=== PATIENT | female | born 1965 | race Two or more races ===

== ENCOUNTER 2020-06-02 17:04 | Inpatient (IN) | payer BC, OTHER ==
[~2020-06-02] VITALS: Ht 154.9 cm; Wt 111.1 kg
[2020-06-02] VITALS: BP 117/70
[2020-06-02] MEDS ORDERED: methylPREDNISolone SOD SUCC 125 MG/2 ML VL IV ONE (17:15)
[2020-06-02 18:39] LABS: Basophils # (auto) 0 10 ^3/uL (0-0.2); Basophils % (auto) 0.2 % (0.0-2.0); Eosinophils # (auto) 0 10 ^3/uL (0-0.8); Eosinophils % (auto) 0.1 % (0.0-7.0); Lymphocytes # (auto) 0.7 10 ^3/uL (0.4-5.4); Lymphocytes % (auto) 9.2 % (10.0-50.0); Mean Corpuscular Hemoglobin 29.9 pg (28.0-32.0); Mean Corpuscular Volume 87.8 fL (80.0-100.0); Monocytes # (auto) 0.5 10 ^3/uL (0-1.3); Monocytes % (auto) 6.1 % (0.0-12.0); Neutrophils # (auto) 6.5 10 ^3/uL (1.6-8.6); Neutrophils % (auto) 84.4 % (37.0-80.0); Nucleated Red Blood Cells % 0.1 %; Platelet Count (auto) 413 10^3/uL (140-450); Red Blood Cells 4.67 10^6/uL (4.0-5.20); Red Cell Distribution Width 13.5 % (11.8-14.3); Urine Bacteria FEW /hpf (None Seen); Urine Blood TRACE /uL (Negative); Urine Mucus FEW (None Seen); Urine Specific Gravity 1.022 (1.001-1.035); Urine WBC 1 /hpf (0 - 5); White Blood Cell 7.7 10^3/uL (4.4-10.8)
[2020-06-02] MEDS ORDERED: ASCORBIC ACID 500 MG TAB PO ONE (18:45)
[2020-06-02] MEDS ORDERED: CHOLECALCIFEROL (VITD3) 2,000 UNIT CAP/TAB PO ONE (18:45)
[2020-06-02] MEDS ORDERED: AZITHROMYCIN 500MG/ 250ML 250 ML IV ONE (18:45)
[2020-06-02] MEDS ORDERED: ZINC SULFATE 220mg CAP or TAB PO ONE (18:45)
[2020-06-02] MEDS ORDERED: REMDESIVIR PER PHARMACY 0 ML IV SCH (19:00)
[2020-06-02 19:07] LABS: Albumin 2.9 g/dL (3.4-5.0); Anion Gap 11 (5-15); Calcium 8.7 mg/dL (8.5-10.1); Carbon Dioxide 25 mmol/L (21-32); Chloride 100 mmol/L (98-107); Glucose 191 mg/dL (74-106); Magnesium 2.2 mg/dL (1.6-2.6); Potassium 3.4 mmol/L (3.5-5.1); Sodium 136 mmol/L (136-145)
[2020-06-02 19:16] LABS: Alkaline Phosphatase 117 U/L (45-117); Aspartate Aminotransferase 31 U/L (15-37); Bilirubin, Total 0.5 mg/dL (0.2-1.0); CRP High Sensitivity 3.48 mg/dL (< 0.3); GFR African American 120 mL/min; GFR Non-African American 99 mL/min; Total Protein 7.7 g/dL (6.4-8.2)
[2020-06-02 19:19] LABS: BUN/Creatinine Ratio 18.2; Blood Urea Nitrogen 12 mg/dL (7-18)
[2020-06-02 19:22] LABS: Lactic Acid w/Reflex 2.8 mmol/L (0.4-2.0)
[2020-06-02 19:22] LABS: Alanine Aminotransferase 41 U/L (13-56)
[2020-06-02] MEDS ORDERED: NITROGLYCERIN 0.4 MG SL TAB SL PRN (20:15)
[2020-06-02] MEDS ORDERED: MORPHINE SULF INJ 2 MG/ML SYRINGE 1ML IV PRN (20:15)
[2020-06-02] MEDS ORDERED: methylPREDNISolone SOD SUCC 125 MG/2 ML VL IV SCH (22:00)
[2020-06-02] MEDS: ALBUTEROL SULF HFA 90MCG INH 200DOSE IN SCH (22:00)
[2020-06-02 22:30] VITALS: BP 117/70
[2020-06-02 23:47] VITALS: BP 117/70
[2020-06-03] MEDS: SOD CHL 0.45% 1,000 ML IV SCH ×3 (01:48→19:45)
[2020-06-03] MEDS: ALBUTEROL SULF HFA 90MCG INH 200DOSE IN SCH ×3 (06:00→20:10)
[2020-06-03 07:31] LABS: Potassium 3.7 mmol/L (3.5-5.1)
[2020-06-03 07:35] LABS: Basophils # (auto) 0 10 ^3/uL (0-0.2); Basophils % (auto) 0.1 % (0.0-2.0); Eosinophils # (auto) 0 10 ^3/uL (0-0.8); Hematocrit 38.5 % (36.0-46.0); Hemoglobin 13.2 g/dL (12.2-16.2); Lymphocytes # (auto) 0.9 10 ^3/uL (0.4-5.4); Lymphocytes % (auto) 14.8 % (10.0-50.0); Mean Corpuscular Hemoglobin 29.9 pg (28.0-32.0); Mean Corpuscular Hgb Conc. 34.3 g/dL (32.0-36.0); Monocytes # (auto) 0.6 10 ^3/uL (0-1.3); Neutrophils # (auto) 4.4 10 ^3/uL (1.6-8.6); Neutrophils % (auto) 75.1 % (37.0-80.0); Nucleated Red Blood Cells % 0.3 %; Platelet Count (auto) 423 10^3/uL (140-450); Red Blood Cells 4.43 10^6/uL (4.0-5.20); Red Cell Distribution Width 13.1 % (11.8-14.3); White Blood Cell 5.9 10^3/uL (4.4-10.8)
[2020-06-03 07:45] LABS: Albumin 2.6 g/dL (3.4-5.0); BUN/Creatinine Ratio 25.5; Bilirubin, Total 0.6 mg/dL (0.2-1.0); Total Protein 6.4 g/dL (6.4-8.2)
[2020-06-03 08:00] VITALS: BP 114/70
[2020-06-03] MEDS ORDERED: REMDESIVIR PER PHARMACY 0 ML IV SCH (08:15)
[2020-06-03 09:00] VITALS: BP 114/70
[2020-06-03] MEDS: levoFLOXacin 500MG 100 ML IV SCH (09:54)
[2020-06-03] MEDS: DexAMETHasone SOD PHOS 10MG/1ML VIAL INJ IV SCH (09:54)
[2020-06-03] MEDS: ZINC SULFATE 220mg CAP or TAB PO SCH (09:54)
[2020-06-03] MEDS: ASCORBIC ACID 500 MG TAB PO SCH ×2 (09:54→21:40)
[2020-06-03] MEDS: CHOLECALCIFEROL (VITD3) 1,000UNIT=25mCg TAB PO SCH (09:54)
[2020-06-03] MEDS ORDERED: IOHEXOL 350 MG/ML 100ML IJ ONE (10:11)
[2020-06-03] MEDS ORDERED: REMDESIVIR 200 MG in NS 210ml LOADING DOSE ADULT IV ONE (12:00)
[2020-06-03] MEDS: ENOXAPARIN SOD 40 MG/0.4 ML SYRINGE SC SCH (12:01)
[2020-06-03 13:00] VITALS: BP 128/74
[2020-06-03 16:48] VITALS: BP 117/66
[2020-06-03 22:00] VITALS: BP 120/57
[2020-06-04 05:00] VITALS: BP 100/50
[2020-06-04 07:20] LABS: Basophils # (auto) 0 10 ^3/uL (0-0.2); Basophils % (auto) 0.2 % (0.0-2.0); Eosinophils # (auto) 0 10 ^3/uL (0-0.8); Eosinophils % (auto) 0.1 % (0.0-7.0); Hemoglobin 13.1 g/dL (12.2-16.2); Lymphocytes # (auto) 1.6 10 ^3/uL (0.4-5.4); Lymphocytes % (auto) 23.8 % (10.0-50.0); Mean Corpuscular Hemoglobin 30.4 pg (28.0-32.0); Mean Corpuscular Hgb Conc. 34.4 g/dL (32.0-36.0); Mean Corpuscular Volume 88.3 fL (80.0-100.0); Monocytes # (auto) 0.8 10 ^3/uL (0-1.3); Monocytes % (auto) 12.5 % (0.0-12.0); Neutrophils # (auto) 4.2 10 ^3/uL (1.6-8.6); Neutrophils % (auto) 63.4 % (37.0-80.0); Nucleated Red Blood Cells % 0.1 %; Platelet Count (auto) 391 10^3/uL (140-450); Red Cell Distribution Width 13.4 % (11.8-14.3); White Blood Cell 6.6 10^3/uL (4.4-10.8)
[2020-06-04] MEDS: ALBUTEROL SULF HFA 90MCG INH 200DOSE IN SCH ×3 (07:22→19:37)
[2020-06-04 07:37] LABS: Albumin 2.6 g/dL (3.4-5.0); Calcium 8.1 mg/dL (8.5-10.1)
[2020-06-04 07:43] LABS: BUN/Creatinine Ratio 26.9; Bilirubin, Total 0.6 mg/dL (0.2-1.0); Total Protein 6.5 g/dL (6.4-8.2)
[2020-06-04 08:51] VITALS: BP 114/61
[2020-06-04] MEDS: ZINC SULFATE 220mg CAP or TAB PO SCH (09:45)
[2020-06-04] MEDS: ASCORBIC ACID 500 MG TAB PO SCH ×2 (09:45→21:14)
[2020-06-04] MEDS: CHOLECALCIFEROL (VITD3) 1,000UNIT=25mCg TAB PO SCH (09:46)
[2020-06-04] MEDS: ENOXAPARIN SOD 40 MG/0.4 ML SYRINGE SC SCH (09:46)
[2020-06-04] MEDS: levoFLOXacin 500MG 100 ML IV SCH (09:47)
[2020-06-04] MEDS: DexAMETHasone SOD PHOS 10MG/1ML VIAL INJ IV SCH (09:47)
[2020-06-04] MEDS: SOD CHL 0.45% 1,000 ML IV SCH ×2 (11:28→17:54)
[2020-06-04 13:00] VITALS: BP 127/81
[2020-06-04] MEDS: REMDESIVIR 100mg 100 MG in SODIUM CHL 0.9% 230 ML IV SCH (16:26)
[2020-06-04 17:00] VITALS: BP 116/71
[2020-06-05] MEDS: SOD CHL 0.45% 1,000 ML IV SCH ×2 (03:15→13:15)
[2020-06-05 05:07] VITALS: BP 107/55
[2020-06-05] MEDS: ALBUTEROL SULF HFA 90MCG INH 200DOSE IN SCH ×2 (06:20→14:08)
[2020-06-05 06:42] LABS: Hematocrit 40.2 % (36.0-46.0); Hemoglobin 13.5 g/dL (12.2-16.2); Mean Corpuscular Hemoglobin 30.2 pg (28.0-32.0); Mean Corpuscular Hgb Conc. 33.5 g/dL (32.0-36.0); Mean Corpuscular Volume 90.1 fL (80.0-100.0); Platelet Count (auto) 303 10^3/uL (140-450); Red Blood Cells 4.46 10^6/uL (4.0-5.20); Red Cell Distribution Width 13.3 % (11.8-14.3); White Blood Cell 5.9 10^3/uL (4.4-10.8)
[2020-06-05 06:57] LABS: Basophils % (manual) 0 (0.0-2.0); Blast Cells 0; Eosinophils % (manual) 0 (0-7); Myelocytes % 0; Promyelocytes % 0; Reactive Lymphocytes 0
[2020-06-05 06:58] LABS: Albumin 2.8 g/dL (3.4-5.0); Calcium 7.9 mg/dL (8.5-10.1); Potassium 3.5 mmol/L (3.5-5.1)
[2020-06-05 07:02] LABS: BUN/Creatinine Ratio 20.3; Bilirubin, Total 0.6 mg/dL (0.2-1.0); Total Protein 6.3 g/dL (6.4-8.2)
[2020-06-05 08:26] LABS: Band Neutrophils % (manual) 4; Lymphocytes % (manual) 19 (10.0-50.0); Metamyelocytes % 2; Monocytes % (manual) 12 (0-12)
[2020-06-05 09:00] VITALS: BP 103/47
[2020-06-05] MEDS: ASCORBIC ACID 500 MG TAB PO SCH (09:51)
[2020-06-05] MEDS: DexAMETHasone SOD PHOS 10MG/1ML VIAL INJ IV SCH (09:51)
[2020-06-05] MEDS: ZINC SULFATE 220mg CAP or TAB PO SCH (09:51)
[2020-06-05] MEDS: ENOXAPARIN SOD 40 MG/0.4 ML SYRINGE SC SCH (09:52)
[2020-06-05] MEDS: levoFLOXacin 500MG 100 ML IV SCH (09:52)
[2020-06-05] MEDS: CHOLECALCIFEROL (VITD3) 1,000UNIT=25mCg TAB PO SCH (10:00)
[2020-06-05 12:34] VITALS: BP 110/74
[2020-06-05 12:43] VITALS: BP 119/72
[2020-06-05] MEDS: REMDESIVIR 100mg 100 MG in SODIUM CHL 0.9% 230 ML IV SCH (15:00)
[2020-06-05] MEDS ORDERED: DEXA2TAB PO (16:01)
[2020-06-05] MEDS ORDERED: ZINC220C8 PO (16:01)
[2020-06-05] MEDS ORDERED: AZIT250T9 PO (16:01)
[2020-06-05] MEDS ORDERED: ASCO500T11 PO (16:02)
[2020-06-05] MEDS ORDERED: CHOL20007 OR (16:03)
[2020-06-05 16:37] VITALS: BP 121/50
[2020-06-06] MEDS ORDERED: LORATADINE 10 MG TAB PO SCH (10:00)
== END 2020-06-05 16:30 | disposition home or self-care (01) | DRG 177 ==
LOC: ER 17:04 → OVERFLOW 17:05 → WEST WING 22:34
PROVIDERS: ADMIT Internal Medicine; ATTEND Internal Medicine
PROC: XW033E5 Introduction of Remdesivir Anti-infective into Peripheral Vein, Percutaneous Approach, New Technology Group 5 (ICD-10-PCS; principal; 2020-06-03)
DX: U07.1 COVID-19 (principal); J12.82 Pneumonia due to coronavirus disease 2019; J96.01 Acute respiratory failure with hypoxia; Z68.42 Body mass index [BMI] 45.0-49.9, adult; E66.01 Morbid (severe) obesity due to excess calories; Z80.9 Family history of malignant neoplasm, unspecified; Z83.3 Family history of diabetes mellitus; Z90.49 Acquired absence of other specified parts of digestive tract
CPT/HCPCS: 36415; 71045; 71275; 80053; 81001; 82728; 83605; 83735; 83880; 84484; 85007; 85025; 85027; 85379; 86141; 87040; 87426; 93005; 94640; 96365; 96375; G0378; J1100; J1956